=== PATIENT | female | born 1945 | race Caucasian/White ===

== ENCOUNTER 2019-06-19 03:01 | Inpatient (IN) ==
[2019-06-19] MEDS ORDERED: CARBOHYDRATES FOR HYPOGLYCEMIA PO PRN (05:41)
[2019-06-19] MEDS ORDERED: GLUCAGON FOR INJ 1 MG VIAL SQ PRN (05:41)
[2019-06-19] MEDS ORDERED: DEXTROSE 50% 50 ML SYRINGE IV PRN (05:41)
[2019-06-19] MEDS ORDERED: ONDANSETRON INJ 2 MG/ML 2 ML VIAL IV PRN (05:41)
[2019-06-19] MEDS ORDERED: GLUCOSE 40% GEL 15 GM TUBE PO PRN (05:41)
[2019-06-19] MEDS ORDERED: GLUCOSE 10 TABS/TUBE PO PRN (05:41)
--- NOTE | 2019-06-19 06:01 | History & Physical Report ---
Date of Service June 19, 2019 Assessment & Plan (1) Chest pain: CAD/hypertension/stented coronary arteries x4 The patient will be admitted to telemetry for serial cardiac enzymes, serial EKG's, cardiac rhythm monitoring and a 2-D echocardiogram with Dopplers. History of stented coronary arteries x4 Present on Admission?: Yes (2) CAD (coronary artery disease): See above Present on Admission?: Yes (3) GI bleed: Given Protonix 80 mg IV prior to leaving [place]. Continue Protonix 40 mg IV twice daily. Consult gastroenterology. As noted, has had negative EGDs and colonoscopy in the past, with most recent in 2013. Do not know if she is ever had her small bowel assessed. Present on Admission?: Yes (4) Cervicalgia: Patient reports a history of recent injury about 3 weeks ago, and had seen neurosurgery at [place] about 2 weeks ago, who had suggested that she go to this proved to undergo neurosurgery. I have asked staff to get copies of these records from [facility] and [facility]. Present on Admission?: Yes (5) Parkinsons: Continue usual dosing of carbidopa levodopa. Present on Admission?: Yes (6) Diabetes mellitus: Reduce Lantus from 70 units subcu every morning to 20 units subcu every morning. Placed on Accu-Cheks before meals and at bedtime with NovoLog coverage per scale. Check hemoglobin A1c Present on Admission?: Yes (7) Hypertension: Placed on Lopressor 5 mg IV every 4 hours, hold for heart rate less than 60 or systolic blood pressure less than 120 Present on Admission?: Yes (8) Iron deficiency anemia: To consider outpatient IV iron, as she has constipation with oral iron. Present on Admission?: Yes (9) Hyperlipidemia: Hold Zetia and pravastatin while n.p.o. Present on Admission?: Yes (10) Gout: Hold allopurinol n.p.o. Present on Admission?: Yes (11) Peripheral neuropathy: Hold gabapentin while n.p.o. Present on Admission?: Yes (12) Depression: Hold medications while n.p.o. Present on Admission?: Yes History of Present Illness Chief Complaint: The patient presented to the ED at [facility] with complaint of generalized weakness and intermittent chest pain worsening over the past 24 hours. Primary Care Provider: NO PCP The patient is a 74 yo female with a PMH including DM, Hyperlipidemia, CAD, Stented coronary arteries x 4, HTN, urinary incontinence, GPN, gout, anemia, and depression who presents with worsening generalized weakness and intermittent chest pain. Her hemoglobin was found to have decreased from a recent 7.9 to 6.4 upon today's labs, and was transfused 1 unit PRBC's prior to transfer. She reports that her last EGD and colonoscopy were in 2013, by physician who has since retired, and were both normal. She also reports that her hemoglobin typically is around 7.9, and she stopped taking iron due to it causing problems with constipation. The patient also reports that 3 weeks ago, while she was sitting on her chair, she fell asleep, and then fell forward and injured her forehead. She was ho spitalized at [place] for 3 days at that time. She notes that since that interval she had injured her cervical spine, was seen by neurosurgery at [place], who advised that she be seen in [place] for surgery for blockage of the fluid draining out of the brain. Allergies Allergy/AdvReac Type Severity Reaction Status Date / Time ciprofloxacin [From Cipro] Allergy Anaphylaxis Verified 06/19/19 06:23 Sulfa (Sulfonamide Allergy Anaphylaxis Verified 06/19/19 06:23 Antibiotics) morphine AdvReac Hypotension Verified 06/19/19 06:23 Home Medications Home Medications Medication Instructions Recorded Confirmed Type allopurinol 200 mg PO DAILY 06/19/19 06/19/19 History aspirin [Aspir-81] 81 mg PO DAILY 06/19/19 06/19/19 History carbidopa-levodopa [Sinemet] 2 tab PO TID 06/19/19 06/19/19 History cholecalciferol (vitamin D3) 06/19/19 History clopidogrel 75 mg PO DAILY 06/19/19 06/19/19 History ezetimibe 10 mg PO DAILY 06/19/19 06/19/19 History gabapentin 300 mg PO BID 06/19/19 06/19/19 History insulin aspart U-100 [Novolog 25 unit SUBCUT AC 06/19/19 06/19/19 History Flexpen U-100 Insulin] insulin glargine [Lantus Solostar 70 unit SUBCUT DAILY 06/19/19 06/19/19 History U-100 Insulin] lisinopril 10 mg PO DAILY 06/19/19 06/19/19 History metoprolol tartrate 25 mg PO BID 06/19/19 06/19/19 History multivitamin 1 tab PO DAILY 06/19/19 06/19/19 History oxybutynin chloride 5 mg PO BID 06/19/19 06/19/19 History pravastatin 80 mg PO DAILY 06/19/19 06/19/19 History rasagiline 1 mg PO DAILY 06/19/19 06/19/19 History sertraline 25 mg PO HS 06/19/19 06/19/19 History Past Med/Surg History Medical History (Updated 06/19/19 @ 07:04 by Luis Hayden MD) CAD (coronary artery disease) Cervicalgia Depression Diabetes mellitus GI bleed Gout Hyperlipidemia Hypertension Iron deficiency anemia Parkinsons Peripheral neuropathy Surgical History (Updated 06/19/19 @ 06:56 by Luis Hayden MD) Stented coronary artery Social History Preferred Language: Rwandan Communication Ability: Effective 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 Beliefs That Will Affect Care: None Current Living Situation: Other Current Living Situation Comment: lives with a roommate Feels Safe at Home: Yes Safety Concerns: Feels Safe At This Time Smoking Status: Never smoker Hx Alcohol Use: No Hx Substance Use: No Review of Systems Review of Systems: The patient denies chest pain at this time, palpitations, shortness of breath, dyspnea on exertion, cough, sore throat, fevers, chills, sweats, nausea, vomiting, abdominal pain, pelvic pain, blood in urine or stool, dysuria, urinary frequency or urgency, lightheadedness, dizziness, headache, memory loss, loss of consciousness, rash, generalized arthralgias or myalgias, or night sweats. The review of systems is otherwise negative other than for that already noted above, and at least 10 systems have been reviewed. Physical Exam Physical Exam: The patient is awake, alert and oriented 3, normocephalic and atraumatic, lying in bed and in no acute distress. HEENT--PERRL, EOMI, mucous membranes and oropharynx normal. Neck--supple. No JVD. No bruits. Thyroid normal, trachea midline, no adenopathy. Heart--normal S1 and S2. No murmurs, rubs or gallops. Lungs--clear bilaterally, no respiratory distress, no accessory muscle use. Abdomen--normal bowel sounds and soft. Nontender. Nondistended. Extremities--no cyanosis or clubbing. There is bilateral upper and lower extremity pitting edema. Dermatologic--normal skin turgor, normal color, no abnormal lymph nodes, no rash . Neurologic--cranial nerves II through XII grossly intact. Rheumatologic--decreased range of motion due to body habitus Psychiatric--normal affect. Code Status & VTE Plan Code Status Full code VTE Prophylaxis Plan VTE Prophylaxis will be ordered: Yes PG Care Time/CCT Total # of Minutes Spent Total Time Spent with Patient: Total time spent is greater than 50% in coordi nation of care (as documented) at patient's floor/unit and/or counseling patient:
[2019-06-19] MEDS ORDERED: PATIENT'S HEIGHT AND/OR WEIGHT NEEDED SCH (06:15)
[2019-06-19 06:20] LABS: Basophils # (auto) 0.01 K/uL (0-0.2); Basophils % (auto) 0.2 %; Eosinophils # (auto) 0.26 K/uL (0-0.5); Eosinophils % (auto) 4.8 %; Hematocrit (blood only) 24.3 % (37-47); Hemoglobin 7.5 g/dL (12.0-16.0); Lymphocytes # (auto) 1.25 K/uL (1.2-3.4); Lymphocytes % (auto) 23.3 %; Mean Corpuscular Hemoglobin 26.5 pg (25-34); Mean Corpuscular Volume 85.9 fL (80-100); Mean Platelet Volume 8.8 fL (7.4-10.4); Monocytes # (auto) 0.47 K/uL (0.11-0.59); Monocytes % (auto) 8.8 %; Neutrophils # (auto) 3.38 K/uL (1.4-6.5); Neutrophils % (auto) 62.9 %; Platelet Count 194 K/uL (130-400); RDW Standard Deviation 50.6 fL (36.4-46.3); Red Blood Count 2.83 M/uL (4.2-5.4); White Blood Count 5.37 K/uL (4.8-10.8)
[2019-06-19 06:23] LABS: Mean Corpuscular Hgb Conc 30.9 g/dL (32-36)
[2019-06-19 06:37] LABS: Albumin Level 3.1 gm/dl (3.4-5.0); BUN Creatinine Ratio 29.5 (10-20); Calcium 9.8 mg/dl (8.5-10.1); Creatinine Clr Calc Pharmacy 37.1 ml/min; Est GFR (African American) 44.2; Est GFR (Non-African American) 38.2; Magnesium 1.8 mg/dl (1.8-2.4); Potassium 4.6 mmol/L (3.5-5.1)
[2019-06-19 06:40] LABS: Albumin Globulin Ratio 0.8 (0.9-2); Bilirubin,Total 0.5 mg/dl (0.2-1); Globulin 3.7 gm/dl (2.5-4.0); Total Protein 6.8 gm/dl (6.4-8.2)
[2019-06-19 07:00] LABS: Ovalocytes 1+
--- NOTE | 2019-06-19 07:06 | XRay Report ---
XR chest 1V portable CLINICAL HISTORY: Atypical chest pain COMPARISON STUDY: No previous studies for comparison. FINDINGS: The heart is borderline enlarged. There is mild elevation of interstitium, likely secondary to mild pulmonary vascular congestion/fluid overload. There is no focal pulmonary consolidation. The re are no large pleural effusions.[ IMPRESSION: Again is a mild congestive failure/fluid overload. No evidence of focal pulmonary consolidation Electronically signed by: Quinton Estrada M.D. 06/19/2019 7:05 AM
[2019-06-19] MEDS: INSULIN ASPART 100 UNITS/ML 3 ML PEN SC SCH ×4 (08:19→20:22)
[2019-06-19] MEDS: METOPROLOL TARTRATE 1 MG/ML VIAL IV SCH ×4 (08:21→20:26)
[2019-06-19 09:20] LABS: Reticulocyte % 2.7 % (0.5-2.0); Reticulocytes # 0.08 10^6/uL (0.02-0.10)
[2019-06-19 09:46] LABS: Ferritin 5.3 ng/ml (8-388)
[2019-06-19] MEDS: GABAPENTIN 300 MG CAP PO SCH ×2 (10:30→20:11)
[2019-06-19] MEDS: CARBIDOPA/LEVODOPA 25/100MG TAB PO SCH ×3 (10:31→20:10)
--- NOTE | 2019-06-19 10:35 | Gastrointestinal Consultation ---
Date of Consultation June 19, 2019 Assessment & Plan (1) Anemia: unclear etiology, no overt GI bleeding at this time Recs: --would check iron studies --trend H/H daily, continue to monitor --supportive care --if continues to decline, can consider repeat endoscopic workup however in the setting of no overt bleeding it will be low yield. History of Present Illness Attending Physician: Kentrell Dc DO 74 yo female with CAD here for chest pains. GI consulted for anemia. Hgb noted to be 7.5, she denies hematochezia, hematemesis, syncope, lightheadedness, melena. No diarrhea, abdominal pains. She has had prior EGD and colonoscopy in 2013 which were unremarkable in terms of finding a cause for her anemia. Unclear if she has ever had a capsule endoscopy. Currently she is HD stable. Labs reviewed, unremarkable except as above. No pertinent imaging to review. Other diagnostics as above. Allergies Allergy/AdvReac Type Severity Reaction Status Date / Time ciprofloxacin [From Cipro] Allergy Anaphylaxis Verified 06/19/19 06:23 Sulfa (Sulfonamide Allergy Anaphylaxis Verified 06/19/19 06:23 Antibiotics) morphine AdvReac Hypotension Verified 06/19/19 06:23 Home Medications Home Medications Medication Instructions Recorded Confirmed Type allopurinol 200 mg PO DAILY 06/19/19 06/19/19 History aspirin [Aspir-81] 81 mg PO DAILY 06/19/19 06/19/19 History carbidopa-levodopa [Sinemet] 2 tab PO TID 06/19/19 06/19/19 History cholecalciferol (vitamin D3) 06/19/19 History clopidogrel 75 mg PO DAILY 06/19/19 06/19/19 History ezetimibe 10 mg PO DAILY 06/19/19 06/19/19 History gabapentin 300 mg PO BID 06/19/19 06/19/19 History insulin aspart U-100 [Novolog 25 unit SUBCUT AC 06/19/19 06/19/19 History Flexpen U-100 Insulin] insulin glargine [Lantus Solostar 70 unit SUBCUT DAILY 06/19/19 06/19/19 History U-100 Insulin] lisinopril 10 mg PO DAILY 06/19/19 06/19/19 History metoprolol tartrate 25 mg PO BID 06/19/19 06/19/19 History multivitamin 1 tab PO DAILY 06/19/19 06/19/19 History oxybutynin chloride 5 mg PO BID 06/19/19 06/19/19 History pravastatin 80 mg PO DAILY 06/19/19 06/19/19 History rasagiline 1 mg PO DAILY 06/19/19 06/19/19 History sertraline 25 mg PO HS 06/19/19 06/19/19 History Patient History Medical History CAD (coronary artery disease) Cervicalgia Depression Diabetes mellitus GI bleed Gout Hyperlipidemia Hypertension Iron deficiency anemia Parkinsons Peripheral neuropathy Surgical History Stented coronary artery Social History Preferred Language: Albanian Communication Ability: Effective 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 Beliefs That Will Affect Care: None Current Living Situation: Other Current Living Situation Comment: lives with a roommate Feels Safe at Home: Yes Safety Concerns: Feels Safe At This Time Smoking Status: Never smoker Hx Alcohol Use: No Hx Substance Use: No Review of Systems Constitutional: no fever, no chills and no weight loss Eyes: as per Subjective / HPI Ear, Nose, Mouth, Throat: as per Subjective / HPI Respiratory: no dyspnea and no dyspnea on exertion Cardiovascular: no chest pain and no palpitations Gastrointestinal: as per Subjective / HPI Musculoskeletal: no joint pain and no swelling Integumentary: no rash and no lesions Neurologic: no numbness and no paresthesia Psychiatric: no depression and no anxiety Endocrine: no fatigue Hematologic / Lymphatic: no easy bleeding and no easy bruising Physical Exam Constitutional: WD/WN, vitals as above Eyes: EOM intact bilaterally Neck: normal visual inspection Respiratory: normal respiratory effort, lungs clear to auscultation Cardiovascular: RRR, no murmur, no edema Gastrointestinal (Abdomen): Inspection/Auscultation: abdomen normal to inspection; abdomen not distended Percussion/Palpation: abdomen soft; abdomen nontender and no hepatosplenomegaly Musculoskeletal: Extremities: no cyanosis Gait: normal gait Skin: no rashes, warm and dry Neurologic: moves all extremities Psychiatric: A+Ox3, euthymic affect Results & Data Vital Signs (Past 12 Hours) Vital Signs Temp Pulse Pulse Resp BP Pulse Ox 06/19/19 08:21 82 06/19/19 08:00 36.7 C 81 20 161/61 H 94 06/19/19 05:28 37.0 C 87 18 173/75 H 96 PG Care Time/CCT Total # of Minutes Spent Total Time Spent with Patient: Total time spent is greater than 50% in coordination of care (as documented) at patient's floor/unit and/or counseling patient:
[2019-06-19] MEDS: PANTOprazole 40 MG in SYRINGE 0 ML IV SCH ×2 (11:47→20:10)
[2019-06-19] MEDS: AZILECT PO SCH (11:48)
[2019-06-19] MEDS ORDERED: [UNRECOGNIZED DRUG - OTHER] SCH (12:00)
[2019-06-19 13:15] LABS: Hemoglobin 7.4 g/dL (12.0-16.0)
--- NOTE | 2019-06-19 14:00 | Hospitalist Progress Note ---
Date of Service June 19, 2019 Assessment & Plan (1) Anemia: Ms. Stover is a 74yo with a PMHx significant for Parkinson's disease, CAD s/p 4 stent placements, DMII, iron deficiency anemia, HLD, HTN, depression and gout who presents with a symptomatic anemia as a transfer from [facility]. Symptomatic Anemia -Pt with fatigue, episode of chest pain that resolved after blood transfusion at previous facility -Pt with noted Hgb of 6.4 at previous hospital; 7.5 on arrival at [facility] -Has Hx of iron deficiency anemia but stopped taking PO iron supplements due to constipation. -Last Hx of colonoscopy is 2013 -fecal occult stool POSITIVE- suggests a possible GI bleed -reticulocyte count, iron panel suggestive of a severe underlying iron deficiency anemia- ?secondary to lower GI malignancy that colonoscopy can identify? -GI consulted- not intervening currently -continue IV Protonix 40mg BID -continue q6h H/H checks with transfusion for Hgb<7, hgb less than 8 but symptomatic. -continue IV Venofer for 5 days. Can discharge on ferrous GLUCONATE which anecdo tally causes less constipation than ferrous sulfate. -will continue to monitor Chest Pain with increased Troponins -pt with now resolved chest pain -Troponins were negative at previous hospital; have slowly been trending up to 0.6 currently -EKG with NSR and first degree AV block, no evidence of UT -Echo 06/19 at [facility] with no wall motion abnormalities; EF within normal range, no valvular abnormalities -currently on tele, will continue to monitor ALANNAH -Pt with Cr from outside hospital noted at 1.5 -Downtrending today, unsure of baseline. -continue to monitor with AM labs Hx of cervalgia: Obtaining outside notes per admitting doc HTN: continue IV lopressor 5mg with hold parameters. Hold home PO metoprolol. HLD: hold home PO Ezetimibe and Pravastatin. Per pt, she used to be on Lipitor at one point but unsure why she was switched to pravastatin (whether allergy or on it so long that no one has switched her per the recommendations) Gout: hold home PO allopurinol Peripheral neuropathy: continue PO gabapentin 300mg BID as pt complaining of significant leg pain at [facility] Parkinson's Disease: continue home PO rasagiline 1mg, cardbidopa-levodopa Depression: hold home PO sertraline DMII: ISS while hospitalized; on insulin at home FEN/GI: NPO currently given concern for acute slow bleed DVT Prophylaxis: currently bleeding, anemic-none ordered CODE STATUS: full Dispo: med/tele Supervising Physician Co-Signing Physician Notes I personally examined the patient and verified all gibson points of history and exam, discussed case, and agree with decision making with Dr Guevara. Feeling better at the time that I see her. Did have upper GI discomfort before, but is eating lunch without pain, indigestion, or difficulty. No chest pain no shortness of breath. Vitals noted, in general she is awake and alert pleasant no distress. HEENT normocephalic atraumatic mucous members are moist. Breathing unlabored no accessory muscle use good effort. Skin shows no rashes no pallor or icterus. Anemia, elevated troponinthe most plausible scenario is that she has some sort of slow bleeding that reached a critical point when her hemoglobin was down in the sixes, precipitating demand ischemia based on her pre-existing coronary disease. She appears better after transfusion, and is feeling better. Definitely need to continue to follow hemoglobin closely, as long as she stays stable and outpatient endoscopic work-up is reasonable with the door trimmer who know her well, but if her hemoglobin were to continue to drop then certainly we would need inpatient work-up. Empiric acid suppression to cover for possible upper GI sourceshe was symptomatic before but is not nowand replace iron. IV for now since she is so profoundly low, and anemia is precipitating demand ischemiaand therefore we want to give her bone marrow as much building blocks as possiblethen ferrous gluconate orally once she is well enough to be discharged. Later Dr. Guevara reassess is due to somewhat lower blood pressures and lightheadednesshemoglobin 7, EKG without ischemic findingswith concern on ongoing bleedingtransfuse and continue to follow very closely. Otherwise as above Subjective Pt seen this AM, seated at bedside in no acute distress. States that her chest pain resolved after she received the blood transfusion. No current SOB or palpitations. No sweats or jaw or arm pain. States she has no offical dx of CHF but has been on low dose furosemide at home. Denies any headache, changes to vision, cough, runny nose, sore throat, dizziness, weakness, chest pain, SOB, palpitations, abdominal pain, diarrhea or constipation, swelling in hands or feet or numbness or tingling anywhere. Review of Systems Review of Systems: All systems reviewed & are unremarkable except as noted in HPI & below Physical Exam Physical Exam: General: Alert, orientedx 3 when seen this AM. Skin: No noted rashes or bruises, pale Psych: Appropriate mood and affect Neuro: Has tremor at rest in arms. HEENT: NC/AT Chest: Nontender to palpation. CV: RRR, Normal s1, s2. No murmurs appreciated Resp: Breath sounds clear bilaterally, no increased effort of breathing. No crackles/rhonchi/rales. Abdomen: Soft, nontender, nondistended. No guarding. No organomegaly appreci ated. Extremities: ++ edema in lower extremities bilaterally. Results & Data Vital Signs (Past 12 Hours) Vital Signs Temp Pulse Pulse Resp BP Pulse Ox 06/19/19 11:48 36.6 C 84 18 148/76 H 94 06/19/19 11:44 83 06/19/19 08:21 82 06/19/19 08:00 36.7 C 81 20 161/61 H 94 06/19/19 05:28 37.0 C 87 18 173/75 H 96 Laboratory Results Laboratory Results - last 24 hr 06/19/19 06/19/19 06/19/19 06:05 06:05 06:05 WBC 5.37 RBC 2.83 L Hgb 7.5 L Hct 24.3 L MCV 85.9 MCH 26.5 MCHC 30.9 L RDW Std Deviation 50.6 H RDW Coeff of Jese 16.0 H Plt Count 194 MPV 8.8 Immature Gran % (Auto) 0.0 Neut % (Auto) 62.9 Lymph % (Auto) 23.3 Gallia % (Auto) 8.8 Eos % (Auto) 4.8 Baso % (Auto) 0.2 Reticulocyte % (Auto) Immature Gran # (Auto) 0.00 Neut # (Auto) 3.38 Lymph # (Auto) 1.25 Gallia # (Auto) 0.47 Eos # (Auto) 0.26 Baso # (Auto) 0.01 Reticulocyte # Ovalocytes 1+ Sodium 139 Potassium 4.6 Chloride 107 Carbon Dioxide 28 Anion Gap 4.0 BUN 40 H Creatinine 1.37 H Est Cr Clr Drug Dosing 37.1 Est GFR ( Amer) 44.2 Est GFR (Non-Af Amer) 38.2 BUN/Creatinine Ratio 29.5 H Glucose 232 H POC Glucose Calcium 9.8 Magnesium 1.8 Iron TIBC Ferritin Total Bilirubin 0.5 AST 15 ALT 9 L Alkaline Phosphatase 51 Troponin I Total Protein 6.8 Albumin 3.1 L Globulin 3.7 Albumin/Globulin Ratio 0.8 L Stool Occult Bld Scrn Blood Type A Negative Blood Type Recheck Antibody Screen NEGATIVE Crossmatch See Detail 06/19/19 06/19/19 06/19/19 07:28 09:00 09:00 WBC RBC Hgb Hct MCV MCH MCHC RDW Std Deviation RDW Coeff of Jese Plt Count MPV Immature Gran % (Auto) Neut % (Auto) Lymph % (Auto) Gallia % (Auto) Eos % (Auto) Baso % (Auto) Reticulocyte % (Auto) 2.7 H Immature Gran # (Auto) Neut # (Auto) Lymph # (Auto) Gallia # (Auto) Eos # (Auto) Baso # (Auto) Reticulocyte # 0.08 Ovalocytes Sodium Potassium Chloride Carbon Dioxide Anion Gap BUN Creatinine Est Cr Clr Drug Dosing Est GFR ( Amer) Est GFR (Non-Af Amer) BUN/Creatinine Ratio Glucose POC Glucose 227 H Calcium Magnesium Iron TIBC Ferritin Total Bilirubin AST ALT Alkaline Phosphatase Troponin I 0.413 H* Total Protein Albumin Globulin Albumin/Globulin Ratio Stool Occult Bld Scrn Blood Type Blood Type Recheck Antibody Screen Crossmatch 06/19/19 06/19/19 06/19/19 09:00 09:00 09:15 WBC RBC Hgb Hct MCV MCH MCHC RDW Std Deviation RDW Coeff of Jese Plt Count MPV Immature Gran % (Auto) Neut % (Auto) Lymph % (Auto) Gallia % (Auto) Eos % (Auto) Baso % (Auto) Reticulocyte % (Auto) Immature Gran # (Auto) Neut # (Auto) Lymph # (Auto) Gallia # (Auto) Eos # (Auto) Baso # (Auto) Reticulocyte # Ovalocytes Sodium Potassium Chloride Carbon Dioxide Anion Gap BUN Creatinine Est Cr Clr Drug Dosing Est GFR ( Amer) Est GFR (Non-Af Amer) BUN/Creatinine Ratio Glucose POC Glucose Calcium Magnesium Iron 79 TIBC 477 H Ferritin 5.3 L Total Bilirubin AST ALT Alkaline Phosphatase Troponin I Total Protein Albumin Globulin Albumin/Globulin Ratio Stool Occult Bld Scrn Positive A Blood Type Blood Type Recheck A Negative Antibody Screen Crossmatch 06/19/19 06/19/19 06/19/19 11:20 13:02 15:15 WBC RBC Hgb 7.4 L Hct 24.0 L MCV MCH MCHC RDW Std Deviation RDW Coeff of Jese Plt Count MPV Immature Gran % (Auto) Neut % (Auto) Lymph % (Auto) Gallia % (Auto) Eos % (Auto) Baso % (Auto) Reticulocyte % (Auto) Immature Gran # (Auto) Neut # (Auto) Lymph # (Auto) Gallia # (Auto) Eos # (Auto) Baso # (Auto) Reticulocyte # Ovalocytes Sodium Potassium Chloride Carbon Dioxide Anion Gap BUN Creatinine Est Cr Clr Drug Dosing Est GFR ( Amer) Est GFR (Non-Af Amer) BUN/Creatinine Ratio Glucose POC Glucose 118 H Calcium Magnesium Iron TIBC Ferritin Total Bilirubin AST ALT Alkaline Phosphatase Troponin I 0.692 H* Total Protein Albumin Globulin Albumin/Globulin Ratio Stool Occult Bld Scrn Blood Type Blood Type Recheck Antibody Screen Crossmatch 06/19/19 06/19/19 16:13 16:33 WBC RBC Hgb 7.0 L Hct 22.4 L MCV MCH MCHC RDW Std Deviation RDW Coeff of Jese Plt Count MPV Immature Gran % (Auto) Neut % (Auto) Lymph % (Auto) Gallia % (Auto) Eos % (Auto) Baso % (Auto) Reticulocyte % (Auto) Immature Gran # (Auto) Neut # (Auto) Lymph # (Auto) Gallia # (Auto) Eos # (Auto) Baso # (Auto) Reticulocyte # Ovalocytes Sodium Potassium Chloride Carbon Dioxide Anion Gap BUN Creatinine Est Cr Clr Drug Dosing Est GFR ( Amer) Est GFR (Non-Af Amer) BUN/Creatinine Ratio Glucose POC Glucose 220 H Calcium Magnesium Iron TIBC Ferritin Total Bilirubin AST ALT Alkaline Phosphatase Troponin I Total Protein Albumin Globulin Albumin/Globulin Ratio Stool Occult Bld Scrn Blood Type Blood Type Recheck Antibody Screen Crossmatch Medications Administered Home Medications allopurinol 200 mg PO DAILY 06/19/19 [History Confirmed 06/19/19] aspirin [Aspir-81] 81 mg PO DAILY 06/19/19 [History Confirmed 06/19/19] carbidopa-levodopa [Sinemet] 2 tab PO TID 06/19/19 [History Confirmed 06/19/19] cholecalciferol (vitamin D3) 06/19/19 [History] clopidogrel 75 mg PO DAILY 06/19/19 [History Confirmed 06/19/19] ezetimibe 10 mg PO DAILY 06/19/19 [History Confirmed 06/19/19] gabapentin 300 mg PO BID 06/19/19 [History Confirmed 06/19/19] insulin aspart U-100 [Novolog Flexpen U-100 Insulin] 25 unit SUBCUT AC 06/19/19 [History Confirmed 06/19/19] insulin glargine [Lantus Solostar U-100 Insulin] 70 unit SUBCUT DAILY 06/19/19 [History Confirmed 06/19/19] lisinopril 10 mg PO DAILY 06/19/19 [History Confirmed 06/19/19] metoprolol tartrate 25 mg PO BID 06/19/19 [History Confirmed 06/19/19] multivitamin 1 tab PO DAILY 06/19/19 [History Confirmed 06/19/19] oxybutynin chloride 5 mg PO BID 06/19/19 [History Confirmed 06/19/19] pravastatin 80 mg PO DAILY 06/19/19 [History Confirmed 06/19/19] rasagiline 1 mg PO DAILY 06/19/19 [History Confirmed 06/19/19] sertraline 25 mg PO HS 06/19/19 [History Confirmed 06/19/19] Active Medications Carbidopa/Levodopa (Sinemet 25/100 Mg) 2 tab PO TID ABI Stop: 07/19/19 13:59 Last Admin: 06/19/19 13:54 Dose: 2 tab Documented by: Dextrose (Dextrose 50%) 25 - 50 ml IV UD PRN; Protocol PRN Reason: Hypoglycemia Protocol Stop: 07/19/19 05:40 Gabapentin (Neurontin) 300 mg PO BID ABI Stop: 07/19/19 09:59 Last Admin: 06/19/19 10:30 Dose: 300 mg Documented by: Glucagon (Glucagen) 1 mg SQ UD PRN; Protocol PRN Reason: Hypoglycemia Protocol Stop: 07/19/19 05:40 Glucose (Dex4 Glucose) 4 - 8 tabs PO UD PRN; Protocol PRN Reason: Hypoglycemia Protocol Stop: 07/19/19 05:40 Glucose (Glucose 40%) 15 - 30 gm PO UD PRN; Protocol PRN Reason: Hypoglycemia Protocol Stop: 07/19/19 05:40 Pantoprazole Sodium 40 mg/ (Syringe) 10 mls @ 5 mls/min IV BID@1200,2100 [facility] Stop: 07/19/19 11:59 Last Admin: 06/19/19 11:47 Dose: 5 mls/min Documented by: Iron Sucrose 100 mg/ Sodium (Chloride) 105 mls @ 420 mls/hr IV QAM [facility] Stop: 06/23/19 09:14 Last Infusion: 06/19/19 14:26 Dose: Infused Documented by: Sodium Chloride (Nss) 250 mls @ 15 mls/hr IV .[id number] PRN PRN Reason: For Transfusion Stop: 06/20/19 02:22 Sodium Chloride (Nss) 250 mls @ 15 mls/hr IV .[id number] PRN PRN Reason: For Transfusion Stop: 06/20/19 02:38 Lactated Ringer's (Lr) 1,000 mls @ 999 mls/hr IV .[id number] ONE Stop: 06/19/19 17:41 Insulin Aspart (Novolog Flexpen) 0 units SC ACHS [facility] Stop: 07/19/19 07:29 Last Admin: 06/19/19 11:35 Dose: Not Given Documented by: Metoprolol Tartrate (Lopressor) 5 mg IV Q4 [facility] Stop: 07/19/19 07:59 Last Admin: 06/19/19 15:48 Dose: 5 mg Documented by: Miscellaneous (Carbohydrates For Hypoglycemia) 15 - 30 gm PO UD PRN PRN Reason: Hypoglycemia Protocol Stop: 07/19/19 05:40 Azilect (Rasagiline) Non-Formulary Patient's Own Med 1 ea PO QAM [facility] Stop: 07/19/19 12:29 Last Admin: 06/19/19 11:48 Dose: 1 ea Documented by: Ondansetron HCl (Zofran) 4 mg IV Q6H PRN PRN Reason: Nausea Stop: 07/19/19 05:40 Resident Activity Tracking Resident Involvement: Resident Care Provided Care Provided: Adult Hospital Medicine
[2019-06-19] MEDS: IRON SUCROSE 100 MG in 0.9 % SODIUM CHLORIDE 100 ML IV SCH (14:08)
[2019-06-19 16:19] LABS: Hematocrit (blood only) 22.4 % (37-47)
[2019-06-19] MEDS ORDERED: SODIUM CHLORIDE 0.9% 250 ML IV PRN ×2 (16:22→16:38)
[2019-06-19] MEDS ORDERED: LACTATED RINGER'S 1,000 ML IV ONE (16:41)
[2019-06-19] MEDS ORDERED: FUROSEMIDE 20 MG in SYRINGE 0 ML IV SCH (16:45)
--- NOTE | 2019-06-19 16:53 | Billing Data ---
Coding Level of Care Code 64709 Subseq Hosp Care Lvl 3
[2019-06-19] MEDS ORDERED: PHENAZOPYRIDINE HCL 100 MG TAB PO PRN (20:12)
[2019-06-19] MEDS: SERTRALINE HCL 50 MG TABLET PO SCH (20:44)
[2019-06-19 20:59] LABS: Appearance Urine Clear (Clear); Bacteria Urine Automated 4+ (Negative); Bilirubin Urine Negative (Negative); Blood Urine Negative (Negative); Color Urine Yellow; Glucose Urine UA Negative (Negative); Ketones Urine Negative (Negative); Leukocyte Esterase Urine 2+ (Negative); Nitrite Urine Positive (Negative); Protein Urine Negative (Negative); RBC Urine Automated 0-4 /hpf (0-4); Specific Gravity Urine 1.015 (1.000-1.030); Urobilinogen Urine Negative (Negative); WBC Urine Automated >30 /hpf (0-5); pH Urine 7.5 (4.5-7.5)
[2019-06-19] MEDS: ACETAMINOPHEN 500 MG TAB PO PRN (21:14)
[2019-06-19 23:55] LABS: Hematocrit (blood only) 29.6 % (37-47); Hemoglobin 9.2 g/dL (12.0-16.0)
[2019-06-20] MEDS: METOPROLOL TARTRATE 1 MG/ML VIAL IV SCH ×6 (00:02→20:42)
[2019-06-20] MEDS: INSULIN ASPART 100 UNITS/ML 3 ML PEN SC SCH ×5 (00:11→20:48)
[2019-06-20 03:33] LABS: Basophils # (auto) 0.03 K/uL (0-0.2); Basophils % (auto) 0.5 %; Eosinophils # (auto) 0.23 K/uL (0-0.5); Eosinophils % (auto) 3.5 %; Hematocrit (blood only) 28.6 % (37-47); Hemoglobin 8.9 g/dL (12.0-16.0); Immature Granulocytes # (auto) 0.01 K/uL (0.00-0.02); Immature Granulocytes % (auto) 0.2 %; Lymphocytes # (auto) 0.69 K/uL (1.2-3.4); Lymphocytes % (auto) 10.6 %; Mean Corpuscular Hgb Conc 31.1 g/dL (32-36); Mean Corpuscular Volume 86.7 fL (80-100); Monocytes # (auto) 0.18 K/uL (0.11-0.59); Monocytes % (auto) 2.8 %; Neutrophils # (auto) 5.37 K/uL (1.4-6.5); Neutrophils % (auto) 82.4 %; Platelet Count 189 K/uL (130-400); RDW Coefficient of Variation 15.7 % (11.5-14.5); RDW Standard Deviation 49.8 fL (36.4-46.3); White Blood Count 6.51 K/uL (4.8-10.8)
[2019-06-20 03:53] LABS: BUN Creatinine Ratio 22.9 (10-20); Calcium 9.4 mg/dl (8.5-10.1); Creatinine Clr Calc Pharmacy 38.8 ml/min; Est GFR (African American) 46.7; Est GFR (Non-African American) 40.3; Potassium 4.1 mmol/L (3.5-5.1)
[2019-06-20 04:09] LABS: Albumin Globulin Ratio 0.8 (0.9-2); Bilirubin,Total 0.5 mg/dl (0.2-1); Globulin 3.6 gm/dl (2.5-4.0); Total Protein 6.6 gm/dl (6.4-8.2); Troponin I 0.368 ng/ml (0-0.045)
[2019-06-20 05:56] LABS: Estimated Average Glucose 157 mg/dl; Hemoglobin A1C 7.1 % (4.5-5.6)
[2019-06-20] MEDS ORDERED: PNEUMOCOCCAL Polysaccharide Vaccine 25mcg/0.5mL vial/Syr IM ONE (06:30)
[2019-06-20] MEDS ORDERED: PROMETHAZINE HCL 25 MG TAB PO ONE (08:24)
[2019-06-20 09:09] LABS: Hematocrit (blood only) 32.4 % (37-47); Hemoglobin 10.1 g/dL (12.0-16.0)
[2019-06-20] MEDS: IRON SUCROSE 100 MG in 0.9 % SODIUM CHLORIDE 100 ML IV SCH (09:58)
[2019-06-20] MEDS: GABAPENTIN 300 MG CAP PO SCH ×2 (09:58→20:43)
[2019-06-20] MEDS: CARBIDOPA/LEVODOPA 25/100MG TAB PO SCH ×3 (09:58→20:46)
[2019-06-20] MEDS: AZILECT PO SCH ×2 (09:59→10:09)
[2019-06-20] MEDS: ACETAMINOPHEN 500 MG TAB PO PRN (10:11)
--- NOTE | 2019-06-20 10:35 | Gastroenterology Progress Note ---
Date of Service June 20, 2019 Assessment & Plan (1) Iron deficiency anemia: (2) Positive occult stool blood test: Pt is a 74 y/o female followed for iron deficiency anemia and positive stool occult blood test. She is w/o any overt s/s of GI bleeding. H/H responding appropriately after 2U PRBC, she is also hemodynamically stable. She came in w symptoms of chest pain as well, hx of CAD s/p stents on Plavix. Troponin up, trending down. Denies chest pain now. - Monitor H/H and transfuse prn - May convert Protonix from IV to PO form - No plans for endoscopies while inpt but I do recommend repeat EGD/Colonoscopy after DC for anemia eval. She prefers to f/u in outpt setting with Dr. Marin Dunn ([facility]) who previously did her EGD, colonoscopy. Pt reports last EGD over 30 yrs ago, told to have GERD and last colonoscopy 10 yrs ago, per her report nothing significant found. - Will watch her peripherally, pls call if any acute changes or overt s/s of GI bleeding. Supervising Physician Co-Signing Physician Notes I have seen and examined the patient and discussed the management with SHERRI Abbott. GI consulted for anemia Prior workup done in the past No overt signs of GI bleeding PE - well nourished white fm in nad, HEENT- perrla, no scleral icterus, CV- rrr no mrg, Pulm- ctab, abd- soft nt nd +bs, Legs - no lower leg swelling noted Labs reviewed Agree with further plan of care as per Sultana's assessment and plan Karina Concepcion MD Subjective Pt up in chair. Denies any more chest pain but does have sensation of needing to belch and upper abd discomfort. She denies any BM today, last BM yesterday which she denies any black/tarry appearance or blood in stools. H/H up . Hgb on admission 7.5, given 2U PRBC transfusion. Troponin up, trending down. Review of Systems Review of Systems: All systems reviewed & are unremarkable except as noted in HPI & below Physical Exam Constitutional: WD/WN, vitals as above well groomed, cooperative and comfortable Eyes: PERRL, conjunctivae normal, anicteric sclerae ENMT: external ear and nose normal, oropharynx normal Respiratory: normal respiratory effort, lungs clear to auscultation Cardiovascular: RRR, no murmur, no edema Gastrointestinal (Abdomen): normal bowel sounds, soft, nontender, no hepatosplenomegaly Skin: no rashes, warm and dry no jaundice Psychiatric: A+Ox3, euthymic affect Lymphatic: no lymphedema Results & Data Vital Signs (Past 12 Hours) Vital Signs Temp Pulse Pulse Resp BP BP BP 06/20/19 10:00 78 158/72 H 06/20/19 07:30 36.6 C 86 18 150/61 H 06/20/19 05:35 77 20 139/57 L 150/71 H 06/20/19 04:19 70 16 138/59 L 06/20/19 03:23 36.6 C 110 H 20 153/65 H 06/20/19 00:02 67 06/19/19 23:10 36.5 C 69 20 114/69 Pulse Ox 06/20/19 10:00 06/20/19 07:30 92 06/20/19 05:35 95 06/20/19 04:19 96 06/20/19 03:23 92 06/20/19 00:02 06/19/19 23:10 97
[2019-06-20] MEDS: PANTOprazole 40 MG in SYRINGE 0 ML IV SCH (12:19)
[2019-06-20] MEDS: cephALEXin 500 MG CAP PO SCH ×2 (15:21→20:43)
[2019-06-20 15:29] LABS: Hematocrit (blood only) 31.2 % (37-47); Hemoglobin 9.9 g/dL (12.0-16.0)
--- NOTE | 2019-06-20 16:58 | Hospitalist Progress Note ---
Date of Service June 20, 2019 Assessment & Plan (1) Anemia: Ms. Stover is a 74yo with a PMHx significant for Parkinson's disease, CAD s/p 4 stent placements, DMII, iron deficiency anemia, HLD, HTN, depression and gout who presents with a symptomatic anemia as a transfer from [facility]. Symptomatic Anemia -Pt with fatigue, episode of chest pain that resolved after blood transfusion at previous facility -Pt with noted Hgb of 6.4 at previous hospital; 7.[address] [facility]; today 10.1 after 2 units of pRBC overnight -Has Hx of iron deficiency anemia but stopped taking PO iron supplements due to constipation. -Last Hx of colonoscopy is 2013 -fecal occult stool POSITIVE- suggests a possible GI bleed but no signs of acute bleeding today -reticulocyte count, iron panel suggestive of a severe underlying iron deficiency anemia- ?secondary to lower GI malignancy that colonoscopy can identify? -GI consulted- rec outpt EGD,colonoscopy once recovered from current illness; agree with plan -IV Protonix 40mg BID switched to PO; adequate acid suppression -check H&H in Am -continue IV Venofer for 5 days. Can discharge on ferrous GLUCONATE which anecdotally causes less constipation than ferrous sulfate. -will continue to monitor Chest Pain with increased Troponins -pt with now resolved chest pain -Troponins were negative at previous hospital; and slightly elevated here from supply/demand mismatch in setting of severe CAD with anemia -EKG with NSR and first degree AV block, no evidence of CT -Echo 06/[address] [facility] with no wall motion abnormalities; EF within normal range, no valvular abnormalities -currently on tele, will continue to monitor ALANNAH -Pt with Cr from outside hospital noted at 1.5 -Downtrending today, unsure of baseline. -continue to monitor with AM labs UTI - new symptoms of dysuria and pelvic pressure - positive culture of gram negative bacilli - started treatment with Keflex 500mg BID Hx of cervalgia: Obtaining outside notes per admitting doc HTN: continue IV lopressor 5mg with hold parameters. Hold home PO metoprolol. HLD: hold home PO Ezetimibe and Pravastatin. Per pt, she used to be on Lipitor at one point but unsure why she was switched to pravastatin (whether allergy or on it so long that no one has switched her per the recommendations) Gout: hold home PO allopurinol Peripheral neuropathy: continue PO gabapentin 300mg BID as pt complaining of significant leg pain at [facility] Parkinson's Disease: continue home PO rasagiline 1mg, cardbidopa-levodopa Depression: hold home PO sertraline DMII: ISS while hospitalized; on insulin at home; A1C = 7.1 FEN/GI: NPO currently given concern for acute slow bleed DVT Prophylaxis: currently bleeding, anemic-none ordered CODE STATUS: full Dispo: med/tele, most likely discharge home tomorrow Supervising Physician Co-Signing Physician Notes Attending attestation Pt seen and examined in concert with Dr. Hall. In agreement with the documented findings as noted in the resident documentation with any exceptions or additions as noted here. Significantly improved overall fatigue/weakness. Per family, much better color overall compared to a few days prior. No cardiac sx complaint. Does complain of some budding urinary burning and suprapubic pressure c/w previous UTIs On examination, S1/S2 nl RRR no MCG. CTAB. BS+ve, mild suprapubic TTP Chest pain 2/2 anemia in the setting of untreated iron deficiency without stigmata of bleeding s/p 3U PRBC - gastroenterology consultation - Trend H/H in AM. PO PPI. Agree w/ iron supplementation on discharge. May need help w/ constipation Urinary tract infection - +ve UCx - start keflex, f/u sensitivity ALANNAH - improved, repeat in AM Else see resident documentation as noted. Subjective No acute events reported overnight. Family notes that patient's color has improved s/p blood transfusions. No signs of bleeding, black or bloody BMs. No chest pain. Had some mild nausea this AM which was treated and resolved. She does note dysuria and lower pelvic pressure when discussing positive urine culture with patient. Physical Exam Constitutional: WD/WN, vitals as above Eyes: + anicteric sclerae and EOM intact bilaterally Neck: normal visual inspection and trachea midline Respiratory: normal respiratory effort, lungs clear to auscultation Cardiovascular: Rate/Rhythm: regular rate and regular rhythm Extremities: + pedal edema Gastrointestinal (Abdomen): Inspection/Auscultation: normal bowel sounds Percussion/Palpation: abdomen soft; abdomen nontender, no guarding and abdomen not rigid Musculoskeletal: Head/Neck/Chest: normocephalic and head atraumatic Skin: no rashes, warm and dry Neurologic: moves all extremities; no focal motor deficits Psychiatric: A+Ox3, euthymic affect Results & Data Vital Signs (Past 12 Hours) Vital Signs Temp Pulse Pulse Resp BP BP BP 06/20/19 16:00 70 06/20/19 15:33 36.6 C 73 20 148/74 H 06/20/19 12:02 36.6 C 75 18 92/53 L 06/20/19 10:00 78 158/72 H 06/20/19 07:30 36.6 C 86 18 150/61 H 06/20/19 05:35 77 20 139/57 L 150/71 H Pulse Ox 06/20/19 16:00 06/20/19 15:33 95 06/20/19 12:02 91 06/20/19 10:00 06/20/19 07:30 92 06/20/19 05:35 95 Laboratory Results Laboratory Results - last 24 hr 06/19/19 06/19/19 06/19/19 06:05 13:02 20:05 WBC RBC Hgb Hct MCV MCH MCHC RDW Std Deviation RDW Coeff of Jese Plt Count MPV Immature Gran % (Auto) Neut % (Auto) Lymph % (Auto) [place] % (Auto) Eos % (Auto) Baso % (Auto) Immature Gran # (Auto) Neut # (Auto) Lymph # (Auto) [place] # (Auto) Eos # (Auto) Baso # (Auto) Sodium Potassium Chloride Carbon Dioxide Anion Gap BUN Creatinine Est Cr Clr Drug Dosing Est GFR ( Amer) Est GFR (Non-Af Amer) BUN/Creatinine Ratio Glucose POC Glucose Estimat Average Glucose 157 Hemoglobin A1c 7.1 H Calcium Total Bilirubin AST ALT Alkaline Phosphatase Troponin I Total Protein Albumin Globulin Albumin/Globulin Ratio Urine Color Yellow Urine Appearance Clear Urine pH 7.5 Ur Specific [place] 1.015 Urine Protein Negative Urine Glucose (UA) Negative Urine Ketones Negative Urine Blood Negative Urine Nitrite Positive A Urine Bilirubin Negative Urine Urobilinogen Negative Ur Leukocyte Esterase 2+ H Urine WBC (Auto) >30 H Urine RBC (Auto) 0-4 U Hyaline Cast (Auto) 1-5 U Epithel Cells (Auto) 5-10 H Urine Bacteria (Auto) 4+ H Blood Type A Negative Antibody Screen NEGATIVE Crossmatch See Detail 06/19/19 06/19/19 06/19/19 20:08 20:57 23:42 WBC RBC Hgb 9.2 L Hct 29.6 L MCV MCH MCHC RDW Std Deviation RDW Coeff of Jese Plt Count MPV Immature Gran % (Auto) Neut % (Auto) Lymph % (Auto) [place] % (Auto) Eos % (Auto) Baso % (Auto) Immature Gran # (Auto) Neut # (Auto) Lymph # (Auto) [place] # (Auto) Eos # (Auto) Baso # (Auto) Sodium Potassium Chloride Carbon Dioxide Anion Gap BUN Creatinine Est Cr Clr Drug Dosing Est GFR ( Amer) Est GFR (Non-Af Amer) BUN/Creatinine Ratio Glucose POC Glucose 198 H Estimat Average Glucose Hemoglobin A1c Calcium Total Bilirubin AST ALT Alkaline Phosphatase Troponin I 0.572 H* Total Protein Albumin Globulin Albumin/Globulin Ratio Urine Color Urine Appearance Urine pH Ur Specific [place] Urine Protein Urine Glucose (UA) Urine Ketones Urine Blood Urine Nitrite Urine Bilirubin Urine Urobilinogen Ur Leukocyte Esterase Urine WBC (Auto) Urine RBC (Auto) U Hyaline Cast (Auto) U Epithel Cells (Auto) Urine Bacteria (Auto) Blood Type Antibody Screen Crossmatch 06/20/19 06/20/19 06/20/19 00:07 03:10 03:10 WBC 6.51 RBC 3.30 L Hgb 8.9 L Hct 28.6 L MCV 86.7 MCH 27.0 MCHC 31.1 L RDW Std Deviation 49.8 H RDW Coeff of Jese 15.7 H Plt Count 189 MPV 9.0 Immature Gran % (Auto) 0.2 Neut % (Auto) 82.4 Lymph % (Auto) 10.6 [place] % (Auto) 2.8 Eos % (Auto) 3.5 Baso % (Auto) 0.5 Immature Gran # (Auto) 0.01 Neut # (Auto) 5.37 Lymph # (Auto) 0.69 L [place] # (Auto) 0.18 Eos # (Auto) 0.23 Baso # (Auto) 0.03 Sodium 137 Potassium 4.1 Chloride 108 H Carbon Dioxide 25 Anion Gap 4.0 BUN 30 H Creatinine 1.31 H Est Cr Clr Drug Dosing 38.8 Est GFR ( Amer) 46.7 Est GFR (Non-Af Amer) 40.3 BUN/Creatinine Ratio 22.9 H Glucose 150 H POC Glucose 160 H Estimat Average Glucose Hemoglobin A1c Calcium 9.4 Total Bilirubin 0.5 AST 18 ALT 7 L Alkaline Phosphatase 47 Troponin I 0.368 H* Total Protein 6.6 Albumin 3.0 L Globulin 3.6 Albumin/Globulin Ratio 0.8 L Urine Color Urine Appearance Urine pH Ur Specific [place] Urine Protein Urine Glucose (UA) Urine Ketones Urine Blood Urine Nitrite Urine Bilirubin Urine Urobilinogen Ur Leukocyte Esterase Urine WBC (Auto) Urine RBC (Auto) U Hyaline Cast (Auto) U Epithel Cells (Auto) Urine Bacteria (Auto) Blood Type Antibody Screen Crossmatch 06/20/19 06/20/19 06/20/19 05:35 08:48 11:38 WBC RBC Hgb 10.1 L Hct 32.4 L MCV MCH MCHC RDW Std Deviation RDW Coeff of Jese Plt Count MPV Immature Gran % (Auto) Neut % (Auto) Lymph % (Auto) [place] % (Auto) Eos % (Auto) Baso % (Auto) Immature Gran # (Auto) Neut # (Auto) Lymph # (Auto) [place] # (Auto) Eos # (Auto) Baso # (Auto) Sodium Potassium Chloride Carbon Dioxide Anion Gap BUN Creatinine Est Cr Clr Drug Dosing Est GFR ( Amer) Est GFR (Non-Af Amer) BUN/Creatinine Ratio Glucose POC Glucose 157 H 210 H Estimat Average Glucose Hemoglobin A1c Calcium Total Bilirubin AST ALT Alkaline Phosphatase Troponin I Total Protein Albumin Globulin Albumin/Globulin Ratio Urine Color Urine Appearance Urine pH Ur Specific [place] Urine Protein Urine Glucose (UA) Urine Ketones Urine Blood Urine Nitrite Urine Bilirubin Urine Urobilinogen Ur Leukocyte Esterase Urine WBC (Auto) Urine RBC (Auto) U Hyaline Cast (Auto) U Epithel Cells (Auto) Urine Bacteria (Auto) Blood Type Antibody Screen Crossmatch 06/20/19 06/20/19 15:20 16:43 WBC RBC Hgb 9.9 L Hct 31.2 L MCV MCH MCHC RDW Std Deviation RDW Coeff of Jese Plt Count MPV Immature Gran % (Auto) Neut % (Auto) Lymph % (Auto) [place] % (Auto) Eos % (Auto) Baso % (Auto) Immature Gran # (Auto) Neut # (Auto) Lymph # (Auto) [place] # (Auto) Eos # (Auto) Baso # (Auto) Sodium Potassium Chloride Carbon Dioxide Anion Gap BUN Creatinine Est Cr Clr Drug Dosing Est GFR ( Amer) Est GFR (Non-Af Amer) BUN/Creatinine Ratio Glucose POC Glucose 232 H Estimat Average Glucose Hemoglobin A1c Calcium Total Bilirubin AST ALT Alkaline Phosphatase Troponin I Total Protein Albumin Globulin Albumin/Globulin Ratio Urine Color Urine Appearance Urine pH Ur Specific [place] Urine Protein Urine Glucose (UA) Urine Ketones Urine Blood Urine Nitrite Urine Bilirubin Urine Urobilinogen Ur Leukocyte Esterase Urine WBC (Auto) Urine RBC (Auto) U Hyaline Cast (Auto) U Epithel Cells (Auto) Urine Bacteria (Auto) Blood Type Antibody Screen Crossmatch Medications Administered Acetaminophen (Tylenol) 1,000 mg PO Q6H PRN PRN Reason: Pain Stop: 07/19/19 20:50 Last Admin: 06/20/19 10:11 Dose: 1,000 mg Documented by: [id number] Admin: 06/19/19 21:14 Dose: 1,000 mg Documented by: [id number] Carbidopa/Levodopa (Sinemet 25/100 Mg) 2 tab PO TID ON LICENSE OF [facility] Stop: 07/19/19 13:59 Last Admin: 06/20/19 15:21 Dose: 2 tab Documented by: [id number] Admin: 06/20/19 09:58 Dose: 2 tab Documented by: [id number] Admin: 06/19/19 20:10 Dose: 2 tab Documented by: [id number] Admin: 06/19/19 13:54 Dose: 2 tab Documented by: [id number] Admin: 06/19/19 10:31 Dose: 2 tab Documented by: [id number] Cephalexin HCl (Keflex) 500 mg PO BID ON LICENSE OF [facility] Stop: 06/25/19 14:44 Last Admin: 06/20/19 15:21 Dose: 500 mg Documented by: [id number] Gabapentin (Neurontin) 300 mg PO BID ON LICENSE OF [facility] Stop: 07/19/19 09:59 Last Admin: 06/20/19 09:58 Dose: 300 mg Documented by: [id number] Admin: 06/19/19 20:11 Dose: 300 mg Documented by: [id number] Admin: 06/19/19 10:30 Dose: 300 mg Documented by: [id number] Pantoprazole Sodium 40 mg/ (Syringe) 10 mls @ 5 mls/min IV BID@1200,2100 ON LICENSE OF [facility] Stop: 07/19/19 11:59 Last Admin: 06/20/19 12:19 Dose: 5 mls/min Documented by: [id number] Admin: 06/19/19 20:10 Dose: 5 mls/min Documented by: [id number] Admin: 06/19/19 11:47 Dose: 5 mls/min Documented by: [id number] Iron Sucrose 100 mg/ Sodium (Chloride) 105 mls @ 420 mls/hr IV QAM ON LICENSE OF [facility] Stop: 06/23/19 09:14 Last Infusion: 06/20/19 10:35 Dose: 0 mls/hr Documented by: [id number] Admin: 06/20/19 09:58 Dose: 420 mls/hr Documented by: [id number] Infusion: 06/19/19 14:26 Dose: 0 mls/hr Documented by: [id number] Admin: 06/19/19 14:08 Dose: 420 mls/hr Documented by: [id number] Metoprolol Tartrate (Lopressor) 5 mg IV Q4 ON LICENSE OF [facility] Stop: 07/19/19 07:59 Last Admin: 06/20/19 12:10 Dose: Not Given Documented by: [id number] Admin: 06/20/19 10:00 Dose: 5 mg Documented by: [id number] Admin: 06/20/19 04:21 Dose: Not Given Documented by: [id number] Admin: 06/20/19 00:02 Dose: Not Given Documented by: [id number] Admin: 06/19/19 20:26 Dose: Not Given Documented by: [id number] Admin: 06/19/19 15:48 Dose: 5 mg Documented by: [id number] Admin: 06/19/19 11:44 Dose: 5 mg Documented by: [id number] Admin: 06/19/19 08:21 Dose: 5 mg Documented by: [id number] Ondansetron HCl (Zofran) 4 mg IV Q6H PRN PRN Reason: Nausea Stop: 07/19/19 05:40 Last Admin: 06/20/19 05:38 Dose: 4 mg Documented by: [id number] Sertraline HCl (Zoloft) 25 mg PO HS ABI Stop: 07/19/19 20:59 Last Admin: 06/19/19 20:44 Dose: 25 mg Documented by: [id number] Resident Activity Tracking Resident Involvement: Resident Care Provided Care Provided: Adult Hospital Medicine
[2019-06-20] MEDS: SERTRALINE HCL 50 MG TABLET PO SCH (20:45)
[2019-06-20] MEDS: PANTOprazole 40 MG TAB PO SCH (20:45)
[2019-06-20] MEDS ORDERED: NON-FORMULARY PATIENT'S OWN MED PO SCH (21:00)
[2019-06-21] MEDS: ACETAMINOPHEN 500 MG TAB PO PRN (00:15)
[2019-06-21] MEDS: METOPROLOL TARTRATE 1 MG/ML VIAL IV SCH ×5 (00:18→10:57)
--- NOTE | 2019-06-21 06:50 | Discharge Summary ---
Date of Service June 21, 2019 Admission HPI Per Admitting Provider The patient is a 74 yo female with a PMH including DM, Hyperlipidemia, CAD, Stented coronary arteries x 4, HTN, urinary incontinence, GPN, gout, anemia, and depression who presents with worsening generalized weakness and intermittent chest pain. Her hemoglobin was found to have decreased from a recent 7.9 to 6.4 upon today's labs, and was transfused 1 unit PRBC's prior to transfer. She reports that her last EGD and colonoscopy were in 2013, by physician who has since retired, and were both normal. She also reports that her hemoglobin typically is around 7.9, and she stopped taking iron due to it causing problems with constipation. The patient also reports that 3 weeks ago, while she was sitting on her chair, she fell asleep, and then fell forward and injured her forehead. She was hospitalized at [facility] for 3 days at that time. She notes that since that interval she had injured her cervical spine, was seen by neurosurgery at [place], who advised that she be seen in [place] for surgery for blockage of the fluid draining out of the brain. Admission Exam Per Admitting Provider The patient is awake, alert and oriented 3, normocephalic and atraumatic, lying in bed and in no acute distress. HEENT--PERRL, EOMI, mucous membranes and oropharynx normal. Neck--supple. No JVD. No bruits. Thyroid normal, trachea midline, no adenopathy. Heart--normal S1 and S2. No murmurs, rubs or gallops. Lungs--clear bilaterally, no respiratory distress, no accessory muscle use. Abdomen--normal bowel sounds and soft. Nontender. Nondistended. Extremities--no cyanosis or clubbing. There is bilateral upper and lower extremity pitting edema. Dermatologic--normal skin turgor, normal color, no abnormal lymph nodes, no rash. Neurologic--cranial nerves II through XII grossly intact. Rheumatologic--decreased range of motion due to body habitus Psychiatric--normal affect. Principal Diagnosis Iron deficiency Anemia; Acute blood loss anemia from presumed GI bleed; Chest pain Discharge Exam Constitutional WD/WN, vitals as above Eyes + anicteric sclerae and EOM intact bilaterally Neck normal visual inspection and trachea midline Respiratory normal respiratory effort, lungs clear to auscultation Cardiovascular Rate/Rhythm: regular rate and regular rhythm Extremities: + pedal edema Gastrointestinal (Abdomen) Inspection/Auscultation: normal bowel sounds Percussion/Palpation: abdomen soft; abdomen nontender, no guarding and abdomen not rigid Musculoskeletal Head/Neck/Chest: normocephalic and head atraumatic Skin no rashes, warm and dry Neurologic moves all extremities; no focal motor deficits Psychiatric A+Ox3, euthymic affect Discharge Data Allergies Allergy/AdvReac Type Severity Reaction Status Date / Time ciprofloxacin [From Cipro] Allergy Anaphylaxis Verified 06/19/19 06:23 Sulfa (Sulfonamide Allergy Anaphylaxis Verified 06/19/19 06:23 Antibiotics) morphine AdvReac Hypotension Verified 06/19/19 06:23 Consultations 06/19/19 05:45 Consult Case Management - Discharge Planning Routine 06/19/19 08:22 Consult Gastroenterology Routine Hospital Course (1) Anemia: Ms. Stover is a 74yo with a PMHx significant for Parkinson's disease, CAD s/p 4 stent placements, DMII, iron deficiency anemia, HLD, HTN, depression and gout who presents with a symptomatic anemia as a transfer from [facility]. Symptomatic Anemia -Pt with fatigue, episode of chest pain that resolved after blood transfusion at previous facility -Pt with noted Hgb of 6.4 at previous hospital; 7.5 on arrival at [facility]; 10.1 after 2 units of pRBC day prior to discharge; 9.1 on day of discharge. Recommend follow up testing as outpatient. -Has Hx of iron deficiency anemia but stopped taking PO iron supplements due to constipation. -Last Hx of colonoscopy is 2013 -fecal occult stool POSITIVE- suggests a possible GI bleed but no signs of acute bleeding while here. -reticulocyte count, iron panel suggestive of a severe underlying iron deficiency anemia- warranting colonoscopy follow up -GI consulted- rec outpt EGD,colonoscopy once recovered from current illness -eRx for Protonix 40mg BID PO; adequate acid suppression -Received IV Venofer for 3 days. Discharged on ferrous GLUCONATE which anecdotally causes less constipation than ferrous sulfate. Patient with concerns for constipation which caused poor compliance; patient education was provided. Chest Pain with increased Troponins -resolved chest pain -Troponins were negative at previous hospital; and slightly elevated here from supply/demand mismatch in setting of severe CAD with anemia -EKG with NSR and first degree AV block, no evidence of TN -Echo 06/19 at [facility] with no wall motion abnormalities; EF within normal range, no valvular abnormalities ALANNAH -Pt with Cr from outside hospital noted at 1.5 -1.28 on discharge UTI - new symptoms of dysuria and pelvic pressure - positive culture of Serretia marcescens, kaminski-sensitive - started treatment with Keflex 500mg BID; received 3 doses here; eRx for 11 more doses provided to complete 7 day course Hx of cervalgia: Obtaining outside notes per admitting doc HTN: continue w/PO metoprolol. HLD: c/w home PO Ezetimibe and Pravastatin. Per pt, she used to be on Lipitor at one point but unsure why she was switched to pravastatin (whether allergy or on it so long that no one has switched her per the recommendations) Gout: held home PO allopurinol; okay to continue on discharge Peripheral neuropathy: Was given PO gabapentin 300mg BID as pt complaining of significant leg pain at [facility]; will defer continuation to PCP. Parkinson's Disease: continue home PO rasagiline 1mg, cardbidopa-levodopa Depression: c/w PO sertraline DMII: ISS while hospitalized; on insulin at home; A1C = 7.1 Total Time Total Time Spent Total Time Spent (In Minutes): 35 Total Time Includes: Examination of the Patient, Discharge Planning, Medication Reconciliation and Communication With Other Providers Discharge Plan Discharge Items Patient Disposition: Home - Self-Care Reason For Visit: ANEMIA, CHEST PAIN Discharge Diagnosis: Iron deficiency Anemia, Chest Pain Activity: Resume your previous activity Non-emergency contact: Primary Care Provider and [employer] T[employer] Head Call non-emergency contact if: you have any medication questions Follow-up/Referrals: PCP,NO [Physician] - Diet: Carb Consistent or DM2 and Heart Healthy Addtl Attending Provider Instructions: You were treated for anemia that required a total of 3 units of packed Red Blood Cells (3 units of blood). You received one unit at prior to transfer and 2 units here. You will need to take Iron supplementation, regardless of your concerns with constipation. A low blood level puts a significant strain on your heart and with your extensive heart disease from Coronary Heart Disease this is not safe. You need to follow up with your Primary Care Physician for next available appointment for hospital follow up. You need to be on the look out for signs of bleeding such as bloody stools. If you experience further signs of bleeding, have chest pains, are concerned you might be bleeding, call 911/go to nearest Emergency Department for evaluation. You will need to follow up with Gastrointestinal Doctor's to have a follow up EGD (Scope into stomach to look for potential sites of bleeding/disease) and Colonoscopy (Scope in colon to look for potential sites of bleeding/disease). Dr. Marin Dunn ([facility]) You had a Urinary Tract Infection and are being treated with an antibiotic Keflex 500mg, taken twice per day (one pill in the morning and one pill in the evening). You have received 3 doses here in the hospital. You will need to take 11 more doses for a total of 7 days of treatment. You are given a prescription for Iron supplementation. Ferrous (Iron) Gluconate. You can take this medication with [place] Juice or Vitamin C tab to help increase with absorption. Also, you are given a prescription for Pantoprazole 40mg Pill, this is taken twice per day, once in the morning and once in the evening. On hospital follow up, this might be decreased to once per day or switched to another medication. This medication turns off acid production in the stomach. Acid can be cause bleeding in your gut, this medication is used to prevent that. Pending Studies at Discharge: No Stand-Alone Forms: [facility], Smoking Cessation Medications and DC Order Prescriptions: New cephalexin 500 mg Capsule 500 mg PO BID Qty: 11 RF: 0 pantoprazole 40 mg Tablet,Delayed Release (Dr/Ec) 40 mg PO BID 30 Days Qty: 60 RF: 0 ferrous gluconate 256 mg (28 mg iron) tablet 256 mg PO DAILY Qty: 30 RF: 0 Continued multivitamin Tablet 1 tab PO DAILY RF: 0 clopidogrel 75 mg Tablet 75 mg PO DAILY RF: 0 allopurinol 100 mg Tablet 200 mg PO DAILY RF: 0 aspirin [Aspir-81] 81 mg Tablet,Delayed Release (Dr/Ec) 81 mg PO DAILY RF: 0 pravastatin 80 mg Tablet 80 mg PO DAILY RF: 0 lisinopril 10 mg Tablet 10 mg PO DAILY RF: 0 gabapentin 300 mg Capsule 300 mg PO BID RF: 0 sertraline 25 mg Tablet 25 mg PO HS RF: 0 carbidopa-levodopa [Sinemet] 25-100 mg Tablet 2 tab PO TID RF: 0 oxybutynin chloride 5 mg Tablet 5 mg PO BID RF: 0 ezetimibe 10 mg Tablet 10 mg PO DAILY RF: 0 Novolog Flexpen U-100 Insulin 100 unit/mL (3 mL) Insulin Pen 25 unit SUBCUT AC RF: 0 metoprolol tartrate 25 mg Tablet 25 mg PO BID RF: 0 rasagiline 1 mg Tablet 1 mg PO DAILY RF: 0 Lantus Solostar U-100 Insulin 100 unit/mL (3 mL) Insulin Pen 70 unit SUBCUT DAILY RF: 0 cholecalciferol (vitamin D3) RF: 0 Discharge Orders: Discharge Order (Routine); Ordered 06/21/19 Ordered By: Ponce Hall Admission Data Admit Date/Time: 06/19/19 05:30 Attending Provider: Gene Mojica Admit Provider: Luis Hayden Primary Care Provider: Rachel Bragg Other Providers: Luis Hayden ; Karina Concepcion Other Interventions: Discharge Summary Assessment (RN) Last Done: 06/21/19 10:07 DC Date/Time DO NOT enter until pt leaves facility: 06/21/19 12:32 Supervising Physician Co-Signing Physician Notes Attending attestation Pt seen and examined in concert with Dr. Hall. In agreement with the documented findings as noted in the resident documentation with any exceptions or additions as noted here. Feeling about baseline today, though still somewhat fatigued. Improved suprapubic abd pressure as well. On examination, S1/S2 nl RRR no MCG. CTAB. BS+ve, improved suprapubic TTP Chest pain 2/2 anemia in the setting of untreated iron deficiency without stigmata of bleeding s/p 3U PRBC - gastroenterology consultation - continue PO PPI, start Fe gluconate. Monitor for constipation. Recheck H/H following discharge. Will need GI outpatient follow up for endoscopy. Strong precautions re: stigmata of bleeding and recurrent anemia. Urinary tract infection - +ve UCx - complete course of keflex as noted. Else see resident documentation as noted. Resident Activity Tracking Resident Involvement: Resident Care Provided Care Provided: Adult Hospital Medicine
[2019-06-21 07:25] LABS: Basophils # (auto) 0.01 K/uL (0-0.2); Basophils % (auto) 0.2 %; Eosinophils % (auto) 5.3 %; Hematocrit (blood only) 28.8 % (37-47); Hemoglobin 9.1 g/dL (12.0-16.0); Immature Granulocytes # (auto) 0.01 K/uL (0.00-0.02); Immature Granulocytes % (auto) 0.2 %; Lymphocytes # (auto) 1.25 K/uL (1.2-3.4); Mean Corpuscular Hemoglobin 27.5 pg (25-34); Mean Corpuscular Hgb Conc 31.6 g/dL (32-36); Mean Platelet Volume 9.1 fL (7.4-10.4); Monocytes # (auto) 0.56 K/uL (0.11-0.59); Monocytes % (auto) 9.9 %; Neutrophils # (auto) 3.54 K/uL (1.4-6.5); Neutrophils % (auto) 62.4 %; Platelet Count 165 K/uL (130-400); RDW Coefficient of Variation 16.2 % (11.5-14.5); RDW Standard Deviation 51.6 fL (36.4-46.3); Red Blood Count 3.31 M/uL (4.2-5.4); White Blood Count 5.67 K/uL (4.8-10.8)
[2019-06-21 08:03] LABS: Alanine Aminotransferase < 6 U/L (12-78); Albumin Level 2.9 gm/dl (3.4-5.0); Aspartate Aminotransferase 16 U/L (15-37); BUN Creatinine Ratio 23.8 (10-20); Blood Urea Nitrogen 31 mg/dl (7-18); Calcium 9.6 mg/dl (8.5-10.1); Carbon Dioxide 23 mmol/L (21-32); Chloride 106 mmol/L (98-107); Creatinine Clr Calc Pharmacy 39.7 ml/min; Est GFR (Non-African American) 41.4; Glucose 263 mg/dl (70-99); Potassium 4.2 mmol/L (3.5-5.1); Sodium 136 mmol/L (136-145)
[2019-06-21] MEDS: IRON SUCROSE 100 MG in 0.9 % SODIUM CHLORIDE 100 ML IV SCH (08:03)
[2019-06-21] MEDS: CARBIDOPA/LEVODOPA 25/100MG TAB PO SCH (08:04)
[2019-06-21] MEDS: cephALEXin 500 MG CAP PO SCH (08:04)
[2019-06-21] MEDS: PANTOprazole 40 MG TAB PO SCH (08:04)
[2019-06-21 08:05] LABS: Albumin Globulin Ratio 0.8 (0.9-2); Alkaline Phosphatase 48 U/L (45-117); Bilirubin,Total 0.3 mg/dl (0.2-1); Globulin 3.6 gm/dl (2.5-4.0); Total Protein 6.5 gm/dl (6.4-8.2)
[2019-06-21] MEDS: GABAPENTIN 300 MG CAP PO SCH (08:05)
[2019-06-21] MEDS: INSULIN ASPART 100 UNITS/ML 3 ML PEN SC SCH ×2 (08:07→11:46)
[2019-06-21] MEDS ORDERED: LANTUS PER UNIT CHARGE SQ STA (11:43)
== END 2019-06-21 12:32 | disposition home or self-care (01) | DRG 313 ==
LOC: SUATTDRO 05:30 → 2S 05:30